=== PATIENT | female | born 1950 | race Caucasian/White ===

== ENCOUNTER 2016-10-28 10:48 | Emergency (ER) | payer MEDICARE ==
[2016-10-28 11:48] LABS: BILIRUBIN NEGATIVE (NEGATIVE); BLOOD TRACE-INTACT Ery/uL (NEGATIVE); CLARITY CLEAR (CLEAR); COLOR YELLOW (YELLOW); GLUCOSE (U) 3+ mg/dL (NORMAL); KETONE (U) 1+ (SMALL) mg/dL (NEGATIVE); LEUKOCYTES NEGATIVE Leu/uL (NEGATIVE); NITRITE NEGATIVE (NEGATIVE); PROTEIN NEGATIVE (NEGATIVE); SPECIFIC GRAVITY 1.015 (1.001-1.030); UROBILINOGEN 0.2 mg/dL (0.2-1.0); pH 5.5 (5.0-9.0)
[2016-10-28 12:02] LABS: BASOPHIL 0.1 % (0-2); EOSINOPHIL 0 % (0-7); HCT 35.4 % (37.0-47.0); HGB 10.7 g/dl (12.5-16.0); LYMPHOCYTE 4.2 % (15-48); MCH 20.9 pg (25.0-31.0); MCHC 30.2 g/dL (32.0-36.0); MCV 69.1 fL (78.0-100.0); MONOCYTE 9.7 % (0-12); MPV 10.6 fL (6.0-9.5); PLT 355 K/uL (150-400); RBC 5.12 M/uL (4.20-5.40); RDW 19.9 % (11.5-14.0); WBC 19.6 K/uL (4.0-10.5)
[2016-10-28 12:03] LABS: BACTERIA TRACE; URINARY RBC RARE
[2016-10-28 12:04] LABS: AMPHETAMINES NEGATIVE (NEGATIVE); BARBITURATES NEGATIVE (NEGATIVE); BENZODIAZEPINES NEGATIVE (NEGATIVE); COCAINE NEGATIVE (NEGATIVE); MARIJUANA (THC) NEGATIVE (NEGATIVE); METHADONE NEGATIVE (NEGATIVE); TRICYCLIC ANTIDEPRESSANT NEGATIVE (NEGATIVE)
[2016-10-28 12:08] LABS: INR 1.83 (0.9-1.2); PROTHROMBIN TIME 20.6 SECONDS (11.7-14.0); PTT 26.1 SECONDS (23.2-31.4)
[2016-10-28 12:25] LABS: CKMB 2.09 ng/mL (0.97-4.94); MYOGLOBIN 62 ng/mL (26-65); TROPONIN T < 0.010 ng/mL
[2016-10-28 12:27] LABS: ACETAMINOPHEN (TYLENOL) < 5.0 ug/mL (10.0-30.0); ALCOHOL (ETOH) MEDICAL NONE DETECTED; SALICYLATE < 6 ug/mL (0-300)
[2016-10-28 12:28] LABS: ALBUMIN 4.9 g/dL (3.4-4.8); BILIRUBIN - TOTAL 0.5 mg/dL (0.1-1.0); CREATININE 0.7 mg/dL (0.5-1.0); GLOBULIN (CALCULATION) 2.5 g/dL (2.2-4.2); POTASSIUM 4.4 mmol/L (3.5-5.1); TOTAL PROTEIN 7.4 g/dL (6.4-8.3)
== END 2016-10-28 13:48 | disposition other institution (70) ==
LOC: FER 10:48
PROVIDERS: Internal Medicine
DX: R41.82 Altered mental status, unspecified (principal); E11.65 Type 2 diabetes mellitus with hyperglycemia; R29.704 NIHSS score 4; K21.9 Gastro-esophageal reflux disease without esophagitis; F17.200 Nicotine dependence, unspecified, uncomplicated; Z91.041 Radiographic dye allergy status; Z79.84 Long term (current) use of oral hypoglycemic drugs; Z79.4 Long term (current) use of insulin; Z79.82 Long term (current) use of aspirin; Z79.01 Long term (current) use of anticoagulants; Z79.899 Other long term (current) drug therapy; Z95.1 Presence of aortocoronary bypass graft
CPT/HCPCS: 36415; 70450; 71010; 80053; 80061; 80305; 81001; 82550; 82553; 83874; 84484; 85025; 85610; 85730; 93005; G0480